=== PATIENT | female | born 2000 | race Caucasian/White ===

== ENCOUNTER 2024-08-31 08:51 | Emergency (ER) | payer BC ==
[2024-08-31 08:57] VITALS: RESP 18
--- NOTE | 2024-08-31 09:07 | ED ---
Abdominal Pain HPI - General Chief Complaint: Abdominal Pain Stated Complaint: abd pain Time Seen by Provider: 08/31/24 09:05 Source: patient, RN notes reviewed Mode of arrival: ambulatory Limitations: no limitations - History of Present Illness Initial Comments: This is a 24-year-old female with no significant past medical history presents emergency department chief complaint of abdominal pain, nausea, vomiting, chills since yesterday morning. Patient states that she has also been experiencing left flank pain. She denies radiation of left flank pain. She denies dysuria, hematuria, increase in urinary frequency or urgency, diarrhea or constipation. Denies previous surgical abdominal history. Denies chance of . States that she last took Motrin at approximately 2000 yesterday. - Related Data Previous Rx's Medication Instructions Recorded Cephalexin [Keflex] 500 mg PO Q6HR #40 cap 08/31/24 Allergies Allergy/AdvReac Type Severity Reaction Status Date / Time No Known Allergies Allergy Verified 08/31/24 08:52 Review of Systems ROS Statement: Those systems with pertinent positive or pertinent negative responses have been documented in the HPI. ROS Other: All systems not noted in ROS Statement are negative. Past Medical History Past Medical History: No Reported History Past Surgical History: No Surgical Hx Reported Smoking Status: Never smoker Past Alcohol Use History: None Reported Past Drug Use History: None Reported General Exam Limitations: no limitations General appearance: alert, in no apparent distress ENT exam: Present: normal exam, mucous membranes moist Neck exam: Present: normal inspection. Absent: tenderness, meningismus, lymphadenopathy Respiratory exam: Present: normal lung sounds bilaterally. Absent: respiratory distress, wheezes, rales, rhonchi, stridor Cardiovascular Exam: Present: regular rate, normal rhythm, normal heart sounds. Absent: systolic murmur, diastolic murmur, rubs, gallop, clicks GI/Abdominal exam: Present: soft, tenderness (Right lower quadrant to palpation), normal bowel sounds. Absent: distended, guarding, rebound, rigid Extremities exam: Present: normal inspection, full ROM, normal capillary refill. Absent: tenderness, pedal edema, joint swelling, calf tenderness Back exam: Present: normal inspection, full ROM, CVA tenderness (L). Absent: CVA tenderness (R), muscle spasm, paraspinal tenderness Skin exam: Present: warm, dry, intact, normal color. Absent: rash Course Vital Signs 08/31/24 08/31/24 08:53 11:56 Temperature 99.4 F 100.5 F H Pulse Rate 119 H 105 H Respiratory 18 18 Rate Blood Pressure 136/90 116/79 O2 Sat by Pulse 98 98 Oximetry Medical Decision Making - Medical Decision Making Was pt. sent in by a medical professional or institution (, SID, POLICE COMMUNICATIONS DISPATCHER, urgent care, hospital, or halfway...) When possible be specific @ -No Did you speak to anyone other than the patient for history (EMS, parent, family, police, friend...)? What history was obtained from this source @ -No Did you review nursing and triage notes (agree or disagree)? Why? @ -I reviewed and agree with nursing and triage notes Were old charts reviewed (outside hosp., previous admission, EMS record, old EKG, old radiological studies, urgent care reports/EKG's, halfway records)? Report findings @ -No old charts were reviewed Differential Diagnosis (chest pain, altered mental status, abdominal pain women, abdominal pain men, vaginal bleeding, weakness, fever, dyspnea, syncope, headache, dizziness, GI bleed, back pain, seizure, CVA, palpatations, mental health, musculoskeletal)? @ -Differential Abdominal Pain Women: Appendicitis, Cholecystitis, diverticulosis, ischemic bowel, pancreatitis, hepatitis, UTI, gastroenteritis, AAA, incarcerated hernia, bowel obstruction, constipation, inflammatory bowel, hepatitis, peptic ulcer disease, splenic infarction, perforated viscus, vulvitis, ovarian torsion, PID, kidney stone, placenta abruption, this is not meant to be an all-inclusive list EKG interpreted by me (3pts min.). @ -none X-rays interpreted by me (1pt min.). @ -None done CT interpreted by me (1pt min.). @ -CT of the abdomen and pelvis without contrast remarkable for a 3 cm cystic mass in the left adnexa U/S interpreted by me (1pt. min.). @ -Transvaginal ultrasound reveals a 2.6 cm possibly septated cyst in the left ovary, recommend follow-up ultrasound in 1-2 menstrual cycles What testing was considered but not performed or refused? (CT, X-rays, U/S, labs)? Why? @ -None What meds were considered but not given or refused? Why? @ -None Did you discuss the management of the patient with other professionals (professionals i.e. , PA, POLICE COMMUNICATIONS DISPATCHER, lab, RT, psych nurse, transition social worker, ribbon blocker, teacher, aoc director combat operations officer, piano case and bench assembler)? Give summary @ -No Was smoking cessation discussed for >3mins.? @ -No Was critical care preformed (if so, how long)? @ -No Were there social determinants of health that impacted care today? How? (Home lessness, low income, unemployed, alcoholism, drug addiction, transportation, low edu. Level, literacy, decrease access to med. care, shelter, rehab)? @ -No Was there de-escalation of care discussed even if they declined (Discuss DNR or withdrawal of care, Hospice)? DNR status @ -No What co-morbidities impacted this encounter? (DM, HTN, Smoking, COPD, CAD, Cancer, CVA, ARF, Chemo, Hep., AIDS, mental health diagnosis, sleep apnea, morbid obesity)? @ -None Was patient admitted / discharged? Hospital course, mention meds given and route, prescriptions, significant lab abnormalities, going to OR and other pertinent info. @ - discharged. 24-year-old female with abdominal pain, nausea, vomiting, flank pain. On my evaluation of the patient she is resting comfortably no signs acute distress. Her vitals are stable. Physical examination remarkable for right lower quadrant tenderness to palpation over McBurney's point. Negative Rovsing sign, negative psoas sign. Patient also has left CVA tenderness to palpation with no radiation of pain. She was offered Zofran and pain medication however is declined this time. She will be evaluated via laboratory studies and CT imaging for concern for possible kidney stone and/or intra-abdominal process. She is in agreement with this plan. patient informed nurse that she was feeling nauseous and zofran was administered. leukocytosis of 19.2 neutrophils of 15.9, CMP unremarkable, hCG negative. UA remarkable for infection including 177 white blood cells, large leukocyte esterase and a cloudy appearance. Patient's recheck of vitals reveals fever of 100.5 and tachycardia of 116. Discussed with patient at bedside that she does meet sepsis criteria due to fever, tachycardia, known source of infection for potential IV antibiotics however she has declined at this time saying that she would like to trial outpatient oral antibiotics and will return the emergency room for any new or worsening symptoms., Patient's ultrasound reveals a 2.6 cm possibly septated cyst in the left ovary recommend that patient follows up with her synthetic chemist in 1-2 menstrual cycles for ultrasound recheck for further evaluation to ensure involution. Recommend that patient does stay however she is okay for discharge with strict return parameters discussed. Patient's urine will be sent for culture as well for further evaluation. This case was discussed in detail with my attending Dr. Davison. Undiagnosed new problem with uncertain prognosis? @ -No Drug Therapy requiring intensive monitoring for toxicity (Heparin, Nitro, Insulin, Cardizem)? @ -No Were any procedures done? @ -No Diagnosis/symptom? @ -Urinary tract infection Acute, or Chronic, or Acute on Chronic? @ -Acute Uncomplicated (without systemic symptoms) or Complicated (systemic symptoms)? @ -uncomplicated Side effects of treatment? @ -No Exacerbation, Progression, or Severe Exacerbation? @ -No Poses a threat to life or bodily function? How? (Chest pain, [place], [place], pneumonia, PE, COPD, DKA, ARF, appy, cholecystitis, CVA, Diverticulitis, Homicidal, Suicidal, threat to staff... and all critical care pts) @ -No - Lab Data Result diagrams: 08/31/24 09:04 08/31/24 09:04 Lab Results 08/31/24 08/31/24 08/31/24 Range/Units 09:04 09:04 09:04 WBC 19.2 H (3.8-10.6) k/uL RBC 5.01 (3.80-5.40) m/uL Hgb 14.2 (11.4-16.0) gm/dL Hct 42.4 (34.0-46.0) % MCV 84.6 (80.0-100.0) fL MCH 28.3 (25.0-35.0) pg MCHC 33.5 (31.0-37.0) g/dL RDW 12.4 (11.5-15.5) % Plt Count 362 (150-450) k/uL MPV 8.0 Neutrophils % 83 % Lymphocytes % 7 % Monocytes % 8 % Eosinophils % 0 % Basophils % 0 % Neutrophils # 15.9 H (1.3-7.7) k/uL Lymphocytes # 1.4 (1.0-4.8) k/uL Monocytes # 1.6 H (0-1.0) k/uL Eosinophils # 0.1 (0-0.7) k/uL Basophils # 0.1 (0-0.2) k/uL Sodium (137-145) mmol/L Potassium (3.5-5.1) mmol/L Chloride (98-107) mmol/L Carbon Dioxide (22-30) mmol/L Anion Gap mmol/L BUN (7-17) mg/dL Creatinine (0.52-1.04) mg/dL Est GFR (CKD-EPI)AfAm (>60 ml/min/1.73 sqM) Est GFR (CKD-EPI)NonAf (>60 ml/min/1.73 sqM) Glucose (74-99) mg/dL Plasma Lactic Acid Keaton (0.7-2.0) mmol/L Calcium (8.4-10.2) mg/dL Total Bilirubin (0.2-1.3) mg/dL AST (14-36) U/L ALT (4-34) U/L Alkaline Phosphatase (38-126) U/L Total Protein (6.3-8.2) g/dL Albumin (3.5-5.0) g/dL Amylase (30-110) U/L Lipase (23-300) U/L Urine Color Yellow Urine Appearance Cloudy H (Clear) Urine pH 7.0 (5.0-8.0) Ur Specific Gila 1.018 (1.001-1.035) Urine Protein 2+ H (Negative) Urine Glucose (UA) Negative (Negative) Urine Ketones 4+ H (Negative) Urine Blood Large H (Negative) Urine Nitrite Negative (Negative) Urine Bilirubin Negative (Negative) Urine Urobilinogen <2.0 (<2.0) mg/dL Ur Leukocyte Esterase Large H (Negative) Urine RBC 10 H (0-5) /hpf Urine WBC 177 H (0-5) /hpf Ur Squamous Epith Cells 5 H (0-4) /hpf Urine Bacteria Rare H (None) /hpf Urine Mucus Moderate H (None) /hpf Urine HCG, Qual Not Detected (Not Detectd) 08/31/24 08/31/24 Range/Units 09:04 09:04 WBC (3.8-10.6) k/uL RBC (3.80-5.40) m/uL Hgb (11.4-16.0) gm/dL Hct (34.0-46.0) % MCV (80.0-100.0) fL MCH (25.0-35.0) pg MCHC (31.0-37.0) g/dL RDW (11.5-15.5) % Plt Count (150-450) k/uL MPV Neutrophils % % Lymphocytes % % Monocytes % % Eosinophils % % Basophils % % Neutrophils # (1.3-7.7) k/uL Lymphocytes # (1.0-4.8) k/uL Monocytes # (0-1.0) k/uL Eosinophils # (0-0.7) k/uL Basophils # (0-0.2) k/uL Sodium 137 (137-145) mmol/L Potassium 3.6 (3.5-5.1) mmol/L Chloride 103 (98-107) mmol/L Carbon Dioxide 22 (22-30) mmol/L Anion Gap 12 mmol/L BUN 14 (7-17) mg/dL Creatinine 0.55 (0.52-1.04) mg/dL Est GFR (CKD-EPI)AfAm >90 (>60 ml/min/1.73 sqM) Est GFR (CKD-EPI)NonAf >90 (>60 ml/min/1.73 sqM) Glucose 92 (74-99) mg/dL Plasma Lactic Acid Keaton 1.1 (0.7-2.0) mmol/L Calcium 9.3 (8.4-10.2) mg/dL Total Bilirubin 1.6 H (0.2-1.3) mg/dL AST 19 (14-36) U/L ALT 11 (4-34) U/L Alkaline Phosphatase 52 (38-126) U/L Total Protein 7.4 (6.3-8.2) g/dL Albumin 4.6 (3.5-5.0) g/dL Amylase 47 (30-110) U/L Lipase 67 (23-300) U/L Urine Color Urine Appearance (Clear) Urine pH (5.0-8.0) Ur Specific Gila (1.001-1.035) Urine Protein (Negative) Urine Glucose (UA) (Negative) Urine Ketones (Negative) Urine Blood (Negative) Urine Nitrite (Negative) Urine Bilirubin (Negative) Urine Urobilinogen (<2.0) mg/dL Ur Leukocyte Esterase (Negative) Urine RBC (0-5) /hpf Urine WBC (0-5) /hpf Ur Squamous Epith Cells (0-4) /hpf Urine Bacteria (None) /hpf Urine Mucus (None) /hpf Urine HCG, Qual (Not Detectd) Disposition Clinical Impression: Pyelonephritis Disposition: HOME SELF-CARE Condition: Serious Instructions (If sedation given, give patient instructions): Urinary Tract Infection in Women (DC) Additional Instructions: Please return to the Emergency Department if symptoms worsen or any other concerns. Complete full course of antibiotics as prescribed. Continue Tylenol Motrin at home for symptomatic relief. Increase hydration. Prescriptions: Cephalexin [Keflex] 500 mg PO Q6HR #40 cap Is patient prescribed a controlled substance at d/c from ED?: No Referrals: Salvador Valles DO [Primary Care Provider] - 1-2 days Time of Disposition: 12:24
[2024-08-31 09:56] LABS: ALT 11 U/L (4-34); AST 19 U/L (14-36); African American GFR (CKD) >90 (>60 ml/min/1.73 sqM); Albumin 4.6 g/dL (3.5-5.0); Alkaline Phosphatase 52 U/L (38-126); Amylase 47 U/L (30-110); Anion Gap 12 mmol/L; Blood Urea Nitrogen 14 mg/dL (7-17); Calcium 9.3 mg/dL (8.4-10.2); Carbon Dioxide 22 mmol/L (22-30); Chloride 103 mmol/L (98-107); Glucose 92 mg/dL (74-99); Lipase 67 U/L (23-300); Non-African American GFR(CKD) >90 (>60 ml/min/1.73 sqM); Potassium 3.6 mmol/L (3.5-5.1); Sodium 137 mmol/L (137-145); Total Bilirubin 1.6 mg/dL (0.2-1.3); Total Protein 7.4 g/dL (6.3-8.2)
[2024-08-31 09:58] LABS: Appearance,Urine Cloudy (Clear); Bacteria,Urine Rare /hpf; Bilirubin,Urine Negative (Negative); Blood,Urine Large (Negative); Color,Urine Yellow; Glucose,Urine (UA) Negative (Negative); Leukocyte Esterase,Urine Large (Negative); Mucus,Urine Moderate /hpf; Nitrite,Urine Negative (Negative); Protein,Urine 2+ (Negative); RBC,Urine 10 /hpf (0-5); Specific Gravity,Urine 1.018 (1.001-1.035); Squamous Epithelial Cell,Urine 5 /hpf (0-4); Urobilinogen,Urine <2.0 mg/dL (<2.0); WBC,Urine 177 /hpf (0-5)
[2024-08-31] MEDS: ONDANSETRON 4 MG/2 ML VIAL IVP STA (09:58)
[2024-08-31 10:01] LABS: Basophils # (A) 0.1 k/uL (0-0.2); Basophils % (A) 0 %; Eosinophils # (A) 0.1 k/uL (0-0.7); Eosinophils % (A) 0 %; HCT 42.4 % (34.0-46.0); HGB 14.2 gm/dL (11.4-16.0); Lymphocytes # (A) 1.4 k/uL (1.0-4.8); Lymphocytes % (A) 7 %; MCH 28.3 pg (25.0-35.0); MCHC 33.5 g/dL (31.0-37.0); MCV 84.6 fL (80.0-100.0); Monocytes # (A) 1.6 k/uL (0-1.0); Monocytes % (A) 8 %; Neutrophils # (A) 15.9 k/uL (1.3-7.7); Neutrophils % (A) 83 %; Platelet Count 362 k/uL (150-450); RBC 5.01 m/uL (3.80-5.40); RDW 12.4 % (11.5-15.5); WBC 19.2 k/uL (3.8-10.6)
--- NOTE | 2024-08-31 10:51 | CT ---
EXAMINATION TYPE: CT abdomen pelvis wo con DATE OF EXAM: 08/31/2024 HISTORY: LT flank pain, N/V CT DLP: 339.2 mGycm. Automated Exposure Control for Dose Reduction was Utilized. TECHNIQUE: CT scan of the abdomen and pelvis is performed without oral or IV contrast. COMPARISON: None FINDINGS: Within the limitations of a non-contrast study, the following observations are made. The lungs are clear. Gallbladder is normal and there is no gallstone, wall thickening, pericholecystic fluid or distention . There is no biliary ductal dilatation. There is no organomegaly of the liver, pancreas, spleen or adrenal glands. There are no renal calcifications or hydronephrosis. The caliber of the abdominal aorta is normal and there is no retroperitoneal adenopathy or hemorrhage . The bowel loops are normal in caliber is no evidence of obstruction. No inflammatory changes are iden tified in the mesentery and there is no free intraperitoneal air or fluid. There is a 3 cm cystic mass in the left adnexa. Short-term follow-up with transvaginal pelvic ultraso und is recommended.. The osseous structures and soft tissues are unremarkable. IMPRESSION: There is a 3 cm cystic mass in the left adnexa. Short-term follow-up with transvaginal pelvic ultraso und is recommended.. [facility], , 08/31/2024 10:49 AM
[2024-08-31 11:37] LABS: Ketones,Urine 4+ (Negative)
--- NOTE | 2024-08-31 12:06 | US ---
EXAMINATION TYPE: US transvaginal DATE OF EXAM: 08/31/2024 COMPARISON: CT same day CLINICAL INDICATION: Female, 24 years old with history of 3 cm mass left adenexa; Pelvic pain x coupl e days TECHNIQUE: Transvaginal ER exam FINDINGS: Date of LMP: Couple days ago EXAM MEASUREMENTS: Uterus: 6.2 x 2.7 x 4.5 cm Endometrial Stripe: 0.3 cm Right Ovary: 2.8 x 1.7 x 2.3 cm Left Ovary: 3.7 x 2.0 x 2.2 cm 1. Uterus: anteverted 2. Endometrium: wnl 3. Right Ovary: wnl 4. Left Ovary: 2.6 x 1.7 x 2.4cm cyst Spectral, color and waveform doppler imaging shows good arterial and venous flow within the ovaries ; there is no evidence for ovarian torsion. 5. Bilateral Adnexa: wnl 6. Posterior cul-de-sac: wnl IMPRESSION: 2.6 cm possibly septated cyst of the left ovary. Follow-up transvaginal ultrasound is rec ommended in one to 2 menstrual cycles. [facility], , 08/31/2024 12:04 PM
[2024-08-31 12:27] VITALS: BP 116/79; PULSE 105; TEMP 100.5
[2024-08-31] MEDS: ACETAMINOPHEN TAB 500 MG TAB PO STA (12:27)
[2024-08-31] MEDS: cefTRIAXone IN SWFI 1,000 MG/10 ML SYRINGE IVP STA (12:29)
== END 2024-08-31 12:41 | disposition home or self-care (01) ==
LOC: EC 08:51
CPT/HCPCS: 36415; 74176; 76830; 80053; 81001; 81025; 82150; 83605; 83690; 85025; 87086; 93975; 96374; 96375; 99284

== ENCOUNTER → 2024-11-15 | Outpatient (CLI) | payer BC ==
--- NOTE | 2024-11-15 10:15 | CT ---
EXAMINATION TYPE: CT abdomen pelvis wo con DATE OF EXAM: 11/15/2024 COMPARISON: 08/31/2024 CLINICAL INDICATION: Female, 24 years old with history of N30.21 OTHER CHRONIC CYSTITIS WITH HEMATURI A; PHH, Frequent UTI's. TECHNIQUE: CT scan of the abdomen and pelvis is performed without oral or IV contrast. CT DLP: [address] CTDI: mGy Automated exposure control for dose reduction was used. FINDINGS: Within the limitations of a non-contrast study, the following observations are made. The lungs are clear. Gallbladder is normal and there is no gallstone, wall thickening, pericholecystic fluid or distention . There is no biliary ductal dilatation. There is no organomegaly of the liver, pancreas, spleen or adrenal glands. There are no renal calcifications or hydronephrosis. The caliber of the abdominal aorta is normal and there is no retroperitoneal adenopathy or hemorrhage . The bowel loops are normal in caliber is no evidence of obstruction. No inflammatory changes are iden tified in the mesentery and there is no free intraperitoneal air or fluid. There is no pelvic mass, free fluid, abscess or adenopathy. There are 2 air bubbles within the urinar y bladder raising the question of recent catheterization or instrumentation. The osseous structures and soft tissues are unremarkable. IMPRESSION: 2 air bubbles within the urinary bladder raising the question of recent catheterization or instrument ation. No other significant abnormality seen within the abdomen or pelvis. [facility], , 11/15/2024 10:13 AM
== END | disposition home or self-care (01) ==
LOC: RADCTMAIN 09:51
PROVIDERS: ATTEND Urology
DX: N30.21 Other chronic cystitis with hematuria (principal); Z87.440 Personal history of urinary (tract) infections
CPT/HCPCS: 74176

== ENCOUNTER → 2025-02-06 | Outpatient (CLI) | payer BC ==
--- NOTE | 2025-02-06 15:49 | US ---
EXAMINATION TYPE: US transvaginal DATE OF EXAM: 02/06/2025 COMPARISON: 08/31/24 ultrasound CLINICAL INDICATION: Female, 24 years old with history of N83.202 UNSPECIFIED OVARIAN CYST, LEFT SIDE ; follow up on cyst TECHNIQUE: Transvaginal (TV). Transabdominal grayscale sonographic images of the pelvis were acquired. Transvaginal sonographic im ages were medically necessary to better assess the following anatomy: Ovaries Doppler imaging: Not performed. FINDINGS: Date of LMP: 12/18/24 EXAM MEASUREMENTS: Uterus: 6.3 x 5.6 x 2.8 cm Endometrial Stripe: 0.5 cm Right Ovary: 3.1 x 2.1 x 2.0 cm Left Ovary: 2.8 x 2.0 x 1.7 cm 1. Uterus: Anteverted wnl 2. Endometrium: wnl 3. Right Ovary: wnl 4. Left Ovary: appears wnl. Slightly limited due to bowel gas 5. Bilateral Adnexa: wnl 6. Posterior cul-de-sac: wnl IMPRESSION: Interval resolution of prior nonsimple 2.6 cm thin-walled cyst in the left ovary. O-RADS 2021 [email or web address] [facility], , 02/06/2025 3:46 PM
== END | disposition home or self-care (01) ==
LOC: RADUSWWP 15:13
PROVIDERS: ATTEND Family Medicine
DX: N83.202 Unspecified ovarian cyst, left side (principal)
CPT/HCPCS: 76830

== ENCOUNTER → 2025-06-12 | Outpatient (CLI) | payer BC ==
--- NOTE | 2025-06-12 11:22 | US ---
EXAMINATION TYPE: US kidneys/renal and bladder DATE OF EXAM: 06/12/2025 COMPARISON: CT 11/15/2024 CLINICAL INDICATION: Female, 25 years old with history of N39.9 DISORDER OF URINARY SYSTEM, UNSPECIFI ED; Frequent UTIs TECHNIQUE: Grayscale imaging of the bilateral kidneys and urinary bladder: FINDINGS: EXAM MEASUREMENTS: Right Kidney: 10.8 x 4.6 x 5.5 cm Left Kidney: 12.8 x 4.9 x 4.3 cm Right Kidney: No hydronephrosis or masses seen Left Kidney: ??duplex kidney with mild pelviectasis of lower pole moiety?? Bladder: wnl Bilateral Jets seen: Yes There is no evidence for hydronephrosis at this point in time. No nephrolithiasis is seen. No maryam s are identified. The urinary bladder is anechoic. IMPRESSION: Duplicated left renal collecting system. Otherwise unremarkable study. [facility], , 06/12/2025 11:19 AM
== END | disposition home or self-care (01) ==
LOC: RADUSWWP 10:18
PROVIDERS: ATTEND Urology
DX: N39.9 Disorder of urinary system, unspecified (principal); Q63.8 Other specified congenital malformations of kidney
CPT/HCPCS: 76770